=== PATIENT | male | born 1955 | race Two or more races ===

== ENCOUNTER 2016-02-29 21:52 | Emergency (ER) | payer BC, OTHER ==
[~2016-02-29] VITALS: Ht 170.2 cm; Wt 69.4 kg
[2016-02-29 21:52] VITALS: BP 131/88
== END 2016-02-29 23:26 | disposition home or self-care (01) ==
LOC: ER 21:53
DX: F10.129 Alcohol abuse with intoxication, unspecified (principal); R79.89 Other specified abnormal findings of blood chemistry
CPT/HCPCS: 82962; 99283; A4606; Z7610